=== PATIENT | male | born 1990 | race Two or more races ===

== ENCOUNTER 2017-11-02 15:06 | Emergency (ER) | payer OTHER ==
[~2017-11-02] VITALS: Ht 167.6 cm; Wt 74.8 kg
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
[2017-11-02] MEDS ORDERED: TDAP [DIPH/PERTUSSIS/TET] 0.5 ML VIAL IM ONE ×2 (15:30→15:59)
[2017-11-02] MEDS ORDERED: LIDOCAINE/PRILOCAINE (5GM) 5 GM TUBE TP ONE (15:30)
[2017-11-02] MEDS ORDERED: IBUPROFEN 600 MG TABLET PO ONE ×2 (15:30→15:59)
[2017-11-02] MEDS ORDERED: oxyCODONE/APAP (5/325 MG) 1 UDTAB TABLET PO ONE (15:30)
[2017-11-02] MEDS ORDERED: oxyCODONE/APAP (5/325 MG) 1 UDTAB TABLET ONE (15:59)
[2017-11-02 17:55] VITALS: BP 120/85
--- NOTE | 2017-11-02 18:30 | NUR ---
Patient discharged to home in stable condition. Written and verbal after care instructions given. Patient verbalizes understanding of instruction.
== END 2017-11-02 18:30 | disposition home or self-care (01) ==
LOC: ER 15:07
DX: S42.001A Fracture of unspecified part of right clavicle, initial encounter for closed fracture (principal); S80.812A Abrasion, left lower leg, initial encounter; S80.811A Abrasion, right lower leg, initial encounter; V00.831A Fall from motorized mobility scooter, initial encounter; S40.811A Abrasion of right upper arm, initial encounter; Y93.89 Activity, other specified; Y92.413 State road as the place of occurrence of the external cause; Y99.8 Other external cause status
CPT/HCPCS: 73030; 99283; A4606; A6402; Z7610; 90715